=== PATIENT | male | born 1990 | race Caucasian/White ===

== ENCOUNTER 2021-04-30 06:19 | Emergency (ER) | payer SELFPAY ==
[~2021-04-30] VITALS: Ht 185.4 cm; Wt 88.5 kg
[2021-04-30 06:24] VITALS: BP 151/113
[2021-04-30] MEDS ORDERED: BACITRACIN OINT 500 UNITS/GM PKT TP ONE ×3 (06:40→07:50)
[2021-04-30] MEDS ORDERED: BACI1PAC6 TP (07:19)
--- NOTE | 2021-04-30 08:00 | NUR ---
PATIENT BIB [facility] POLICE DEPT. PATIENT EXAMINED BY DR. PRYOR. PATIENT MEDICALLY CLEARED AND RELEASED IN CUSTODY IN STABLE CONDITION. ORIGINAL PRE-BOOK FORM GIVEN TO OFFICER CARMELA.
== END 2021-04-30 08:00 ==
LOC: MED 06:19
DX: S40.812A Abrasion of left upper arm, initial encounter (principal); F19.10 Other psychoactive substance abuse, uncomplicated; Z02.89 Encounter for other administrative examinations; Z79.899 Other long term (current) drug therapy; V43.52XA Car driver injured in collision with other type car in traffic accident, initial encounter; Y93.89 Activity, other specified; Y92.89 Other specified places as the place of occurrence of the external cause; Y99.8 Other external cause status
CPT/HCPCS: 90715; 99283